=== PATIENT | male | born 1935 | race Caucasian/White ===

== ENCOUNTER → 2018-08-14 | Outpatient (CLI) | payer MEDICARE, BC | LOC: M.ULTRA 09:18 | DX: G45.9 Transient cerebral ischemic attack, unspecified (principal); I25.10 Atherosclerotic heart disease of native coronary artery without angina pectoris; R42 Dizziness and giddiness; R55 Syncope and collapse; R26.9 Unspecified abnormalities of gait and mobility ==

== ENCOUNTER 2020-09-10 16:01 | Emergency (ER) | payer MEDICARE, BC ==
[~2020-09-10] VITALS: Ht 182.9 cm; Wt 82.6 kg
[2020-09-10] MEDS ORDERED: FOLIC ACID1 MG PO (16:10)
[2020-09-10] MEDS ORDERED: ASA81BEC PO (16:11)
[2020-09-10 19:48] LABS: ABSOLUTE BASOPHILS 0.1 thou/uL (0.0-0.2); ABSOLUTE EOSINOPHILS 0.1 thou/uL (0.0-0.7); ABSOLUTE LYMPHOCYTES 0.9 thou/uL (0.8-5.3); ABSOLUTE MONOCYTES 0.6 thou/uL (0.0-1.2); ABSOLUTE NEUTROPHILS 7.2 thou/uL (1.6-8.1); EOSINOPHILS 0.7 %; HEMATOCRIT 36.5 % (42.0-52.0); HEMOGLOBIN 12.3 gm/dL (14.0-18.0); LYMPHOCYTES 10.4 %; MCH 28.4 pg (26.0-34.0); MCHC 33.6 g/dL (28.0-37.0); MCV 84.4 fL (80.0-100.0); MONOCYTES 6.9 %; MPV 9.8 fl. (7.2-11.1); NUCLEATED RBCS 0 /100WBC; PLATELET COUNT* 165 thou/uL (150-400); RBC 4.32 mil/uL (4.50-6.00); RDW-CV 14.9 % (10.5-14.5); WBC 8.8 thou/uL (4.0-11.0)
[2020-09-10 20:04] LABS: CALCIUM 8.3 mg/dL (8.5-10.1); CREATININE 1.1 mg/dL (0.6-1.3); POTASSIUM 3.9 mmol/L (3.5-5.1)
[2020-09-10 20:09] LABS: ALBUMIN 3.6 g/dL (3.4-5.0); TOTAL PROTEIN 6.9 g/dL (6.4-8.2)
[2020-09-10 21:30] VITALS: BP 130/57
--- NOTE | 2020-09-11 12:59 | EKG ---
[place] [address] ELECTROCARDIOGRAM REPORT Name: CUCA CANO Room: [facility]#: [id number] Admission: 09/10/20 Attend Phys: Discharge: 09/10/20 Date of : 35 Date of Service: 09/10/201937 Report #: [id number] THIS REPORT FOR: //name// [facility] ED Test Date: 2020-09-10 Test Time: 19:38:27 Pat Name: CUCA AZEVEDOCK Department: Room: Gender: Yam Curer: [place] : 1935 Requested By: Eli Nascimento Order Number: [id number] MD: Anthony Walker Measurements Intervals [place] Rate: 78 P: 34 [place]: 154 QRS: -16 QRSD: 144 T: 10 QT: 403 QTc: 460 Interpretive Statements Sinus rhythm Right bundle branch block Compared to ECG 10/24/2008 07:28:10 Sinus bradycardia no longer present Electronically Signed On 09-11-2020 12:59:15 CDT by Anthony Walker [email or web address] <ELECTRONICALLY SIGNED> By: Anthony Wlaker MD, [facility] 09/11/20 1259 37 37 Anthony Walker MD, [facility] /EPI
== END 2020-09-10 21:30 | disposition home or self-care (01) ==
LOC: M.ERS 16:01
PROVIDERS: Emergency Medicine
DX: R51.9 Headache, unspecified (principal); Z20.822 Contact with and (suspected) exposure to COVID-19; R68.83 Chills (without fever); R11.0 Nausea; K21.9 Gastro-esophageal reflux disease without esophagitis; M54.2 Cervicalgia; Z98.890 Other specified postprocedural states

== ENCOUNTER 2020-12-05 12:27 | Inpatient (IN) | payer MEDICARE, BC ==
[~2020-12-05] VITALS: Ht 182.9 cm; Wt 84.6 kg
[2020-12-05 12:27] VITALS: BP 145/90
[~2020-12-05 12:27] MED LIST: ASA81BEC PO; FOLIC ACID1 MG PO
[2020-12-05 12:48] LABS: ABSOLUTE BASOPHILS 0.1 thou/uL (0.0-0.2); ABSOLUTE EOSINOPHILS 0.2 thou/uL (0.0-0.7); ABSOLUTE LYMPHOCYTES 1.9 thou/uL (0.8-5.3); ABSOLUTE MONOCYTES 0.4 thou/uL (0.0-1.2); ABSOLUTE NEUTROPHILS 3.6 thou/uL (1.6-8.1); BASOPHILS 1.5 %; EOSINOPHILS 3.3 %; HEMATOCRIT 37.1 % (42.0-52.0); HEMOGLOBIN 12.2 gm/dL (14.0-18.0); LYMPHOCYTES 30.2 %; MCH 28.2 pg (26.0-34.0); MCHC 32.9 g/dL (28.0-37.0); MCV 85.8 fL (80.0-100.0); MONOCYTES 7.2 %; MPV 9.2 fl. (7.2-11.1); NUCLEATED RBCS 0 /100WBC; PLATELET COUNT* 189 thou/uL (150-400); POLYS 57.8 %; RBC 4.33 mil/uL (4.50-6.00); RDW-CV 16.1 % (10.5-14.5); WBC 6.2 thou/uL (4.0-11.0)
[2020-12-05 12:58] LABS: CALCIUM 8.5 mg/dL (8.5-10.1); POTASSIUM 4.1 mmol/L (3.5-5.1)
[2020-12-05 13:02] LABS: ALBUMIN 3.5 g/dL (3.4-5.0); TOTAL BILIRUBIN 0.4 mg/dL (<0.1-1.0); TOTAL PROTEIN 6.7 g/dL (6.4-8.2)
[2020-12-05] MEDS ORDERED: VITAMIN B12-FO1 EAC1 PO (13:36)
[2020-12-05 17:11] VITALS: BP 139/69
[2020-12-05 18:11] VITALS: BP 132/94
[2020-12-05 21:00] VITALS: BP 111/43
[2020-12-06 00:19] VITALS: BP 110/49
[2020-12-06 02:06] LABS: GLYCOHEMOGLOBIN (HGB A1C) 5.4 % (4.8-5.6)
[2020-12-06 04:00] VITALS: BP 99/45
[2020-12-06 08:00] VITALS: BP 128/58
[2020-12-06 08:01] LABS: ABSOLUTE BASOPHILS 0.1 thou/uL (0.0-0.2); ABSOLUTE EOSINOPHILS 0.2 thou/uL (0.0-0.7); ABSOLUTE LYMPHOCYTES 2.1 thou/uL (0.8-5.3); ABSOLUTE MONOCYTES 0.4 thou/uL (0.0-1.2); ABSOLUTE NEUTROPHILS 2.8 thou/uL (1.6-8.1); EOSINOPHILS 3.8 %; HEMATOCRIT 37.2 % (42.0-52.0); HEMOGLOBIN 11.9 gm/dL (14.0-18.0); LYMPHOCYTES 37.1 %; MCH 27.3 pg (26.0-34.0); MCHC 31.9 g/dL (28.0-37.0); MCV 85.5 fL (80.0-100.0); MONOCYTES 7.3 %; MPV 9.9 fl. (7.2-11.1); NUCLEATED RBCS 0 /100WBC; PLATELET COUNT* 196 thou/uL (150-400); POLYS 50.8 %; RBC 4.35 mil/uL (4.50-6.00); RDW-CV 16.4 % (10.5-14.5); WBC 5.6 thou/uL (4.0-11.0)
[2020-12-06 08:23] LABS: CHOLESTEROL 114 mg/dL (<200); HDL CHOLESTEROL 52 mg/dL (>40); LDL CHOLESTEROL 47 mg/dL (<100); SERUM ASSESSMENT Clear; TC:HDL 2.2 Ratio (Not establshd); TRIGLYCERIDE 76 mg/dL (<150); VLDL 15 mg/dL (<40)
[2020-12-06 08:53] LABS: CALCIUM 8.6 mg/dL (8.5-10.1); POTASSIUM 4.1 mmol/L (3.5-5.1)
[2020-12-06 12:00] VITALS: BP 131/56
[2020-12-06 16:07] VITALS: BP 131/56
--- NOTE | 2020-12-17 10:12 | CON ---
[address] [address] CONSULTATION Name: CUCA CANO Room: [address] [place]#: [id number] Admission: 12/05/20 Attend Phys: Sixto Ramirez MD Discharge: 12/06/20 Date of : 35 Report #: [id number] THIS REPORT FOR: cc: Paul Noriega Steve T. DO Khosla, Parveen K. MD ~ DATE OF CONSULTATION: 12/06/2020 HISTORY OF PRESENT ILLNESS: An 85-year-old male patient who was evaluated by me for an episode of speech difficulty as well as some facial droop. Symptoms resolved by themselves. The patient feels back to his normal self now. He never had this kind of episode before. He was in the call or contact centre coach's office. They did the dilatation of the pupil, but the symptoms started before the dilatation of the pupils or any medication. REVIEW OF SYSTEMS: A 14-point review of system was carried out. He has a lens implant, gallbladder removed, hernia repair, GERD. He says he is pretty healthy. He thinks he had a stent, but he does not have any pacemaker. He is not complaining of any eye, ENT, cardiac, respiratory, GI, , musculoskeletal, constitutional, dermatological, hematological, psychiatric, throat, allergic symptom associated with present symptomatology. PAST MEDICAL HISTORY: Negative for any TIA or stroke. FAMILY HISTORY: Unremarkable. SOCIAL HISTORY: He has smoked and drank alcohol in the past, but he does not do either one of them now. PHYSICAL EXAMINATION: NEUROLOGIC: He is alert and responsive. His speech is back to the baseline. He believes his fund of knowledge and memory is also at his baseline. Cranial nerve examination II-XII looks unremarkable. Strength, sensation, reflexes, and tone looks symmetrical. There is no cerebellar sign. I could not look at the fundus. There is no meningeal sign. There is no carotid bruit. There is no thyroid mass. Pulses in the legs are palpable. He has no edema, cyanosis, or jaundice. CARDIORESPIRATORY: Examinations appear noncontributory. VITAL SIGNS: His blood pressure is 131/56, respirations 19, pulse is 61, temperature is 97.8. LABORATORY DATA: His GFR is 71 and it was 71 yesterday. His lipid profile actually looks pretty good. IMPRESSION: This patient had a transient ischemic attack[place] [address] CONSULTATION Name: CUCA CANO ALFONSO Room: [address]#: [id number] Admission: 12/05/20 Attend Phys: Sixto Ramirez MD Discharge: 12/06/20 Date of : 35 Report #: [id number] workup for transient ischemic attack, but he wants to go home. Therefore, I suggested he get a CT angio of the head and neck done. If that is normal, he can be sent home on 325 mg enteric-coated aspirin. If he has any further stroke-like symptoms, he should call 911. He should contact my office on Tuesday and we will set him up for an MRI, echocardiogram, and follow up as an outpatient. This is a plan he wants to follow because he really wants to go home. He understands his options very well in that regard and this is the option he wants to follow. Thank you very much for this referral. <ELECTRONICALLY SIGNED> By: Conrado Mayo MD 12/17/20 1012 [id number] [id number] Mayo MD /nt
== END 2020-12-06 16:35 | disposition home or self-care (01) | DRG 69 ==
LOC: M.ERS 12:27 → M.TBA-ER 13:45 → M.2W 17:25
PROVIDERS: Family Medicine; ADMIT Internal Medicine; ATTEND Internal Medicine
DX: G45.9 Transient cerebral ischemic attack, unspecified (principal); T50.995A Adverse effect of other drugs, medicaments and biological substances, initial encounter; Y92.89 Other specified places as the place of occurrence of the external cause; Z20.822 Contact with and (suspected) exposure to COVID-19; K21.9 Gastro-esophageal reflux disease without esophagitis; Z87.891 Personal history of nicotine dependence

== ENCOUNTER → 2020-12-15 | Outpatient (CLI) | payer MEDICARE, BC ==
[~2020-12-15] MED LIST changes: +VITAMIN B12-FO1 EAC1 PO
--- NOTE | 2020-12-15 16:15 | 2DMMODE ---
[place] [address] 2 D/M-MODE ECHOCARDIOGRAM Name: CUCA CANO Room: [facility]#: [id number] Admission: 12/15/20 Attend Phys: Conrado Mayo, Discharge: Date of : 35 Date of Service: 12/15/20 1615 Report #: [id number] THIS REPORT FOR: cc: Paul Noriega Steve T. DO Liston, Michael J. MD [facility] ~ APPROVED REPORT Study performed: 12/15/2020 13:56:34 EXAM: Comprehensive 2D, Doppler, and color-flow Echocardiogram/ Bubble Study Patient Location: Out-Patient BSA: 2.06 HR: 70 bpm BP: 132/82 mmHg Other Information Study Quality: Good Indications TIA 2D Dimensions IVSd: 11.55 (7-11mm) LVOT Diam: 21.02 (18-24mm) LVDd: 45.49 mm PWd: 9.53 (7-11mm) Ascending Ao: 35.16 (22-36mm) LVDs: 32.47 (25-40mm) Aortic Root: 33.72 mm Volumes Left Atrial Volume (Systole) LA ESV Index: 33.80 mL/m2 Aortic Valve AoV Peak Reggie.: 1.14 m/s AO Peak Gr.: 5.21 mmHg LVOT Max P.04 mmHg AO Mean Gr.: 2.79 mmHg LVOT Mean P.40 mmHg LVOT Max V: 1.01 m/s AO V2 VTI: 24.87 cm LVOT Mean V: 0.52 m/s MAYLIN (VTI): 2.85 cm2 LVOT V1 VTI: 20.41 cm Mitral Valve E/A Ratio: 1.26 [place] [address] 2 D/M-MODE ECHOCARDIOGRAM Name: CUCA CANO Room: [facility]#: [id number] Admission: 12/15/20 Attend Phys: Conrado Mayo, Discharge: Date of : 35 Date of Service: 12/15/20 1615 Report #: [id number] MV Decel. Time: 167.83 ms MV E Max Reggie.: 0.76 m/s MV PHT: 48.67 ms MVA (PHT): 4.52 cm2 TDI E/Lateral E': 6.91 E/Medial E': 5.85 Medial E' Reggie.: 0.13 m/s Lateral E' Reggie.: 0.11 m/s Pulmonary Valve PV Peak Reggie.: 0.83 m/s PV Peak Gr.: 2.76 mmHg Tricuspid Valve RAP Estimate: 5.00 mmHg TR Peak Gr.: 33.41 mmHg RVSP: 38.41 mmHg PA Pressure: 38.41 mmHg Left Ventricle The left ventricle is normal size. There is normal LV segmental wall motion. There is normal left ventricular wall thickness. Left ventricular systolic function is normal. LVEF is 60-65%. Transmitral Doppler flow pattern suggests pseudonormalization. Right Ventricle The right ventricle is normal size. The right ventricular systolic function is normal. Atria Left atrium is mildly dilated. Injection of bubbles documented no interatrial shunt. Right atrium is mildly dilated. Aortic Valve The aortic valve is normal in structure. Trace aortic regurgitation. There is no aortic valvular stenosis. Mitral Valve Mild mitral annular calcification. Mild mitral regurgitation. No evidence of mitral valve stenosis. Tricuspid Valve The tricuspid valve is normal in structure. Mild tricuspid regurgitation. The RVSP is 40-45 mmHg. Pulmonic Valve The pulmonary valve is normal in structure. [place] [address] 2 D/M-MODE ECHOCARDIOGRAM Name: CUCA CANO ALFONSO Room: [facility]#: [id number] Admission: 12/15/20 Attend Phys: Conrado Mayo, Discharge: Date of : 35 Date of Service: 12/15/20 1615 Report #: [id number] regurgitation. Great Vessels The aortic root is normal in size. IVC is normal in size and collapses >50% with inspiration. Pericardium There is no pericardial effusion. <Conclusion> The left ventricle is normal size. There is normal left ventricular wall thickness. Left ventricular systolic function is normal. LVEF is 60-65%. Transmitral Doppler flow pattern suggests pseudonormalization. Left atrium is mildly dilated. Right atrium is mildly dilated. Trace aortic regurgitation. Mild mitral regurgitation. Mild tricuspid regurgitation. The RVSP is 40-45 mmHg. IVC is normal in size and collapses >50% with inspiration. Injection of bubbles documented no interatrial shunt. <ELECTRONICALLY SIGNED> By: Francesco Wolfe MD, FACC 12/15/20 1615 1615 1615 Francesco Wolfe MD, FACC /INF
== END ==
LOC: M.CRD 12-09 14:26
PROVIDERS: ATTEND Psychiatry & Neurology Neuromuscular Medicine
DX: I08.8 Other rheumatic multiple valve diseases (principal); G31.89 Other specified degenerative diseases of nervous system; R90.82 White matter disease, unspecified; G45.9 Transient cerebral ischemic attack, unspecified

== ENCOUNTER → 2021-01-12 | Outpatient (CLI) | payer MEDICARE, BC | LOC: M.RAD 08:25 | PROVIDERS: ATTEND Nurse Practitioner Family | DX: K56.609 Unspecified intestinal obstruction, unspecified as to partial versus complete obstruction (principal) ==

== ENCOUNTER → 2021-01-14 | Outpatient (CLI) | payer MEDICARE, BC ==
[2021-01-15 03:06] LABS: IgA 224 mg/dL (61-437); IgG 993 mg/dL (603-1613)
[2021-01-15 05:07] LABS: IgM 24 mg/dL (15-143)
[2021-01-15 13:08] LABS: ANTI-SSA <0.2 AI (0.0-0.9)
[2021-01-15 19:07] LABS: ANA INTERPRETATION Negative (())
== END ==
LOC: M.LAB 15:11
PROVIDERS: ATTEND Psychiatry & Neurology Neuromuscular Medicine
DX: I63.9 Cerebral infarction, unspecified (principal); K56.600 Partial intestinal obstruction, unspecified as to cause; R53.83 Other fatigue

== ENCOUNTER → 2021-01-15 | Outpatient (CLI) | payer MEDICARE, BC ==
[2021-01-15 08:29] VITALS: BP 139/70
[2021-01-15 08:30] VITALS: BP 139/70
[2021-01-15 08:44] VITALS: BP 139/70
[2021-01-15 08:47] VITALS: BP 146/65
--- NOTE | 2021-01-15 15:19 | CARD ---
[place] [address] CARDIAC CATH REPORT Name: JEROMECUCA ALFONSO Room: [facility] Zayda.#: [id number] Admission: 01/15/21 Attend Phys: Francesco Wolfe MD Discharge: Date of : 35 Report #: [id number] THIS REPORT FOR: cc: Paul Noriega Steve T. DO Liston, Michael J. MD [facility] ~ cc: Paul Noriega DO DATE OF SERVICE: 01/15/2021 PROCEDURE: Implantable loop recorder placement. INDICATION: Cryptogenic stroke. PROCEDURE DESCRIPTION: After informed consent was obtained, the patient was brought to the cardiac holding area. The area of the chest wall was prepped and draped in sterile fashion. The fourth intercostal space left of sternum was identified by palpation. Local anesthesia was achieved with 1% lidocaine. Next, after the skin was anesthetized, an incision was made with the provided blade. A BioMonitor III, model #249414, serial #[id number] implantable loop recorder was placed without difficulty. The skin incision was then closed with Dermabond. The patient tolerated the procedure well without complication. IMPRESSION: 1. Cryptogenic stroke. 2. Successful placement of an implantable loop recorder for continued monitoring. <ELECTRONICALLY SIGNED> By: Francesco Wolfe MD, [facility] 01/15/21 1519 0742 [id number] Wolfe MD, [facility]ARRY[facility] /nt
== END | disposition home or self-care (01) ==
LOC: M.CL 07:08
PROVIDERS: ATTEND Internal Medicine Cardiovascular Disease
DX: I63.9 Cerebral infarction, unspecified (principal); Z79.82 Long term (current) use of aspirin

== ENCOUNTER → 2021-02-25 | Outpatient (CLI) | payer MEDICARE, OTHER | LOC: M.LAB 09:38 | PROVIDERS: ATTEND Internal Medicine Gastroenterology | DX: Z01.812 Encounter for preprocedural laboratory examination (principal); Z20.822 Contact with and (suspected) exposure to COVID-19 ==